=== PATIENT | female | born 1985 | race Caucasian/White ===

== ENCOUNTER → 2016-12-18 | Outpatient (CLI) | payer OTHER, SELFPAY ==
--- NOTE | 2016-12-24 00:36 | MRI ---
EXAM DESCRIPTION: Brain w/wo Contrast CLINICAL HISTORY: 31 years Female, HEADACHE COMPARISON: None. TECHNIQUE: Multiplanar, multisequence imaging of the brain was performed prior to and after the administration of contrast. FINDINGS: The midline structures are unremarkable on today's study. [place] and white matter is unremarkable. No abnormal extra-axial fluid. No mass, mass effect or shift. Post contrasted 2-D and 3-D imaging reveals no abnormal enhancement. Ventricles are midline and unremarkable. While not a dedicated orbit exam the orbits and globes are unremarkable. No paranasal sinus disease. IMPRESSION: Today's pre and postcontrast MRI of the brain is unremarkable. Specifically, no mass, Chiari malformation or sinus disease. Electronically signed by: Syed Beltran MD 12/19/2016 9:45 AM [employer]CHESTRA TEACHER
== END | disposition home or self-care (01) ==
LOC: MRI 09:01
PROVIDERS: ATTEND Nurse Practitioner Family
DX: R51 Headache (principal)

== ENCOUNTER → 2020-09-02 | Outpatient (CLI) | payer BC ==
--- NOTE | 2020-09-04 17:48 | RAD ---
EXAM: Chest,2 Views CLINICAL HISTORY: COVID 19 COMPARISON STUDY: None TECHNICAL: Posteroanterior (PA) and lateral views of the chest were performed. FINDINGS: No consolidations, effusions, or edema. The heart size is not enlarged. No acute osseous abnormality. IMPRESSION: NORMAL CHEST XRAY. Electronically signed by: Marty Plaza MD 09/04/2020 5:[address]
== END ==
LOC: LAB.O 11:41
PROVIDERS: ATTEND Family Medicine
DX: U07.1 COVID-19 (principal)